=== PATIENT | male | born 1985 | race Caucasian/White ===

== ENCOUNTER 2019-03-01 13:10 | Outpatient (CLI) | payer OTHER ==
--- NOTE | 2019-03-01 14:59 | ULT ---
BILATERAL TESTICULAR ULTRASOUND WITH HERNANDEZ SCALE AND COLOR FLOW AND SPECTRAL DOPPLER IMAGING: HISTORY: Testicular pain. FINDINGS: The right testis measures 4.5 x 2.3 x 3.1 cm and the left testis measures 5.3 x 2.5 x 2.8 cm. The le ft epididymis measures 0.9 x 1 cm and the left epididymis measures 0.9 x 0.7 cm. No testicular mass is seen. No microlithiasis is seen on either side. There is increased flow to the left testis and e pididymis compared to the right. Tubular structures increased during Valsalva are seen in the left s crotum which are extratesticular, consistent with varicocele. Small bilateral hydroceles are seen. IMPRESSION: 1. Findings are suspicious for epididymal orchitis. 2. Left varicocele. POS: OFF
== END 2019-03-01 13:11 | disposition home or self-care (01) ==
LOC: BICULT 13:10
PROVIDERS: ATTEND Specialist
DX: N50.812 Left testicular pain (principal)
CPT/HCPCS: 76870; 93976